=== PATIENT | male | born 2005 | race Caucasian/White ===

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

== ENCOUNTER 2024-05-15 17:11 | Emergency (ER) | payer MEDICAID ==
[~2024-05-15] VITALS: Ht 177.8 cm; Wt 131.5 kg
[2024-05-15 17:11] VITALS: BP_SYST 170; PULSE 108; RESP 18; TEMP 97.9; O2SAT 98
[~2024-05-15 17:11] MED LIST: AMOX-423 PO
[2024-05-15] MEDS: AMOXICILLIN/POTASSIUM CLAV 875 MG TABLET PO ONE (19:05)
[2024-05-15] MEDS: IBUPROFEN 800 MG TABLET PO ONE (19:05)
[2024-05-15] MEDS ORDERED: IBUP-1969 PO (19:26)
[2024-05-15] MEDS ORDERED: AUG875 PO (19:26)
[2024-05-15] MEDS ORDERED: NEOM10SO7 RIGHT EAR (19:26)
[2024-05-15 19:36] VITALS: BP_SYST 170; PULSE 108; RESP 18; TEMP 97.9; O2SAT 98
== END 2024-05-15 19:36 | disposition home or self-care (01) ==
LOC: SED 17:11
DX: H66.91 Otitis media, unspecified, right ear (principal); H60.91 Unspecified otitis externa, right ear; Z79.2 Long term (current) use of antibiotics
CPT/HCPCS: 99283